=== PATIENT | male | born 1955 | race Two or more races ===

== ENCOUNTER 2023-05-23 21:31 | Emergency (ER) | payer OTHER ==
[~2023-05-23] VITALS: Ht 177.8 cm; Wt 76.2 kg
[2023-05-23] MEDS ORDERED: BUSPIRONE HCL7.5 MG PO (21:44)
[2023-05-23] MEDS ORDERED: TAMS0.4C PO (21:44)
[2023-05-23] MEDS ORDERED: BUTALB/ACETAMINOPHEN/CAFFEINE 1 TAB TABLET PO ONE (23:00)
== END 2023-05-24 00:09 | disposition home or self-care (01) ==
LOC: ER 21:32
DX: M76.891 Other specified enthesopathies of right lower limb, excluding foot (principal); Z88.6 Allergy status to analgesic agent; Z87.891 Personal history of nicotine dependence; Z85.46 Personal history of malignant neoplasm of prostate; J90 Pleural effusion, not elsewhere classified; M10.9 Gout, unspecified